=== PATIENT | male | born 1950 | race Two or more races ===

== ENCOUNTER 2023-03-24 09:45 | Inpatient (IN) | payer OTHER ==
[~2023-03-24] VITALS: Ht 243.8 cm; Wt 74.4 kg
[2023-03-24] MEDS ORDERED: LANTUS (12:34)
[2023-03-24] MEDS ORDERED: ACID REDUCER20 M1 PO (12:35)
[2023-03-29] MEDS ORDERED: OMEPRAZOLE20 MG (10:14)
[2023-03-29] MEDS ORDERED: LISINOPRIL20 MG (10:15)
[2023-03-30 04:57] LABS: HEMATOCRIT 36.5 % (39.0-48.0); HEMOGLOBIN 12.6 g/dL (13-16.00); MEAN CORPUSCULAR HEMOGLOBIN 30.9 pg (27.00-32.0); MEAN CORPUSCULAR HGB CONC 34.4 g/dl (32.0-36.0); PLATELET COUNT 168 K/uL (150-450); RED BLOOD COUNT 4.06 M/uL (4.00-6.00); RED CELL DISTRIBUTION WIDTH 14.7 % (11.5-14.5)
[2023-03-30 05:23] LABS: ALBUMIN 3.1 gm/dL (3.4-5.0); CALCIUM 8.2 mg/dL (8.5-10.1); CREATININE SERUM 1.07 mg/dL (0.70-1.30); GFR 68.13; MAGNESIUM 1.6 mg/dL (1.8-2.4); PHOSPHOROUS 3.6 mg/dL (2.5-4.9); POTASSIUM 4.59 mEq/L (3.5-5.1)
[2023-04-01 07:45] LABS: HEMATOCRIT 43.8 % (39.0-48.0); HEMOGLOBIN 15.1 g/dL (13-16.00); MEAN CELL VOLUME 90.2 fL (80.0-100.00); MEAN CORPUSCULAR HEMOGLOBIN 31.1 pg (27.00-32.0); MEAN CORPUSCULAR HGB CONC 34.4 g/dl (32.0-36.0); PLATELET COUNT 226 K/uL (150-450); RED BLOOD COUNT 4.85 M/uL (4.00-6.00); RED CELL DISTRIBUTION WIDTH 14.5 % (11.5-14.5)
[2023-04-01 08:31] LABS: CALCIUM 9.6 mg/dL (8.5-10.1); CREATININE SERUM 1.09 mg/dL (0.70-1.30); GFR 66.69; MAGNESIUM 2.1 mg/dL (1.8-2.4); PHOSPHOROUS 2.5 mg/dL (2.5-4.9); POTASSIUM 4.21 mEq/L (3.5-5.1)
[2023-04-02 08:28] LABS: HEMATOCRIT 46.3 % (39.0-48.0); HEMOGLOBIN 15.9 g/dL (13-16.00); MEAN CELL VOLUME 89.6 fL (80.0-100.00); MEAN CORPUSCULAR HEMOGLOBIN 30.8 pg (27.00-32.0); MEAN CORPUSCULAR HGB CONC 34.4 g/dl (32.0-36.0); PLATELET COUNT 242 K/uL (150-450); RED BLOOD COUNT 5.17 M/uL (4.00-6.00); RED CELL DISTRIBUTION WIDTH 14.6 % (11.5-14.5)
[2023-04-02 09:01] LABS: CALCIUM 9.4 mg/dL (8.5-10.1); CREATININE SERUM 1.27 mg/dL (0.70-1.30); GFR 55.9; PHOSPHOROUS 3.8 mg/dL (2.5-4.9); POTASSIUM 4.34 mEq/L (3.5-5.1)
[2023-04-02 15:29] LABS: CALCIUM 8.8 mg/dL (8.5-10.1); CHOL HDL RATIO 4.3 (0-5.0); CREATININE SERUM 1.45 mg/dL (0.70-1.30); GFR 47.97; POTASSIUM 4.75 mEq/L (3.5-5.1)
[2023-04-03 07:52] LABS: HEMATOCRIT 41.1 % (39.0-48.0); HEMOGLOBIN 14.3 g/dL (13-16.00); MEAN CELL VOLUME 89.5 fL (80.0-100.00); MEAN CORPUSCULAR HEMOGLOBIN 31.1 pg (27.00-32.0); MEAN CORPUSCULAR HGB CONC 34.7 g/dl (32.0-36.0); PLATELET COUNT 222 K/uL (150-450); RED CELL DISTRIBUTION WIDTH 14.5 % (11.5-14.5)
[2023-04-03 08:01] LABS: CALCIUM 8.9 mg/dL (8.5-10.1); CREATININE SERUM 1.13 mg/dL (0.70-1.30); GFR 63.97; MAGNESIUM 2.1 mg/dL (1.8-2.4); PHOSPHOROUS 2.9 mg/dL (2.5-4.9); POTASSIUM 4.94 mEq/L (3.5-5.1)
[2023-04-05 08:03] LABS: ALBUMIN 2.2 gm/dL (3.4-5.0); CALCIUM 8.2 mg/dL (8.5-10.1); CREATININE SERUM 2.88 mg/dL (0.70-1.30); GFR 21.73; MAGNESIUM 1.9 mg/dL (1.8-2.4); PHOSPHOROUS 4.5 mg/dL (2.5-4.9); POTASSIUM 4.56 mEq/L (3.5-5.1)
[2023-04-05 17:30] LABS: HEMOGLOBIN 12.9 g/dL (13-16.00); MEAN CELL VOLUME 90.6 fL (80.0-100.00); MEAN CORPUSCULAR HEMOGLOBIN 30.8 pg (27.00-32.0); PLATELET COUNT 153 K/uL (150-450); RED CELL DISTRIBUTION WIDTH 14.6 % (11.5-14.5)
[2023-04-05 21:00] LABS: ABG PH 7.475 (7.35-7.45); ABG PO2 62.4 mmHg (80-100); ABG pCO2 22.8 mmHg (35-45); BASE EXCESS -4.9 mmol/l; BICARBONATE 16.4 mmol/l (23-25); SaO2 92.9 %; Tco2 17.1 mmol/l
[2023-04-05 21:01] LABS: allen test SATISFACTORY; o2 21 %; puncture site BRADIAL RIGHT
[2023-04-06] LABS: ABG PH 7.242 (7.35-7.45); ABG PO2 119.8 mmHg (80-100); BASE EXCESS -8.2 mmol/l; SaO2 97.6 %
[2023-04-06 00:01] LABS: Tco2 20.3 mmol/l; allen test SATISFACTORY; o2 50 %; puncture site BRADIAL RIGHT
[2023-04-06 07:45] LABS: HEMATOCRIT 37.1 % (39.0-48.0); HEMOGLOBIN 12.5 g/dL (13-16.00); MEAN CELL VOLUME 89.6 fL (80.0-100.00); MEAN CORPUSCULAR HEMOGLOBIN 30.3 pg (27.00-32.0); MEAN CORPUSCULAR HGB CONC 33.8 g/dl (32.0-36.0); PLATELET COUNT 155 K/uL (150-450); RED BLOOD COUNT 4.14 M/uL (4.00-6.00)
[2023-04-06 07:54] LABS: ALBUMIN 1.4 gm/dL (3.4-5.0); BILIRUBIN TOTAL 2.62 mg/dL (0.3-1.2); GLOBULINA 2.4 G/DL (2.4-3.5); MAGNESIUM 1.7 mg/dL (1.8-2.4); PHOSPHOROUS 4.6 mg/dL (2.5-4.9); POTASSIUM 5.67 mEq/L (3.5-5.1); TOTAL PROTEIN 3.8 gm/dL (6.4-8.2)
[2023-04-06 08:02] LABS: GFR 10.66
[2023-04-06 08:03] LABS: CALCIUM 6.1 mg/dL (8.5-10.1); CREATININE SERUM 5.34 mg/dL (0.70-1.30)
[2023-04-06 09:42] LABS: ABG PH 7.317 (7.35-7.45)
[2023-04-06 09:43] LABS: ABG PO2 121.3 mmHg (80-100); ABG pCO2 37.9 mmHg (35-45); BASE EXCESS -6.5 mmol/l; SaO2 98.2 %; Tco2 20.1 mmol/l; allen test SATISFACTORY; o2 40 %; puncture site RADIAL RIGHT
[2023-04-06 16:06] LABS: URINE APPEARANCE Turbid; URINE BILIRRUBIN Moderate (NEGATIVE); URINE BLOOD Large; URINE COLOR Dark Yellow; URINE LEUKOCYTE Small; URINE NITRATE Positive; URINE UROBILINOGEN 0.2 E.U./dl
[2023-04-06 16:10] LABS: URINE BACTERIA 447.2 uL (0.0-1933); URINE RBC 600.3 uL (0.0-20.8); URINE WBC 37.2 uL (0.0-23.2)
[2023-04-06 16:51] LABS: CHOL HDL RATIO 8.8 (0-5.0); POTASSIUM 5.25 mEq/L (3.5-5.1)
[2023-04-06 16:59] LABS: URINE GLUCOSE 100 MG/DL (NEGATIVE)
[2023-04-06 17:00] LABS: URINE EPITHELIAL CELLS > 201.7 uL (0.0-38.8); URINE PROTEIN 100 (NEGATIVE); URINE YEAST MODERATE /hpf
[2023-04-06 17:06] LABS: GFR 10.3
[2023-04-06 17:09] LABS: CALCIUM 6.3 mg/dL (8.5-10.1); CKMB 3.8 NG/ML (0.5-3.6); CREATININE SERUM 5.5 mg/dL (0.70-1.30)
[2023-04-07 08:46] LABS: ABG PO2 150.5 mmHg (80-100); ABG pCO2 34.2 mmHg (35-45); BASE EXCESS -8.4 mmol/l; BICARBONATE 16.8 mmol/l (23-25); Tco2 17.9 mmol/l; allen test SATISFACTORY; o2 40 %; puncture site RADIAL RIGHT
[2023-04-07 09:32] LABS: HEMATOCRIT 29.5 % (39.0-48.0); MEAN CELL VOLUME 91.7 fL (80.0-100.00); MEAN CORPUSCULAR HGB CONC 33.4 g/dl (32.0-36.0); RED BLOOD COUNT 3.22 M/uL (4.00-6.00); RED CELL DISTRIBUTION WIDTH 15.1 % (11.5-14.5)
[2023-04-07 09:36] LABS: MEAN CORPUSCULAR HEMOGLOBIN 30.7 pg (27.00-32.0)
[2023-04-07 09:38] LABS: HEMOGLOBIN 9.9 g/dL (13-16.00); PLATELET COUNT 91 K/uL (150-450)
[2023-04-07 10:47] LABS: ALBUMIN 1.1 gm/dL (3.4-5.0); BILIRUBIN TOTAL 2.11 mg/dL (0.3-1.2); GLOBULINA 2.8 G/DL (2.4-3.5); MAGNESIUM 2.1 mg/dL (1.8-2.4); PHOSPHOROUS 5.7 mg/dL (2.5-4.9); POTASSIUM 5.11 mEq/L (3.5-5.1); TOTAL PROTEIN 3.9 gm/dL (6.4-8.2)
[2023-04-07 10:56] LABS: GFR 8.33
[2023-04-07 10:59] LABS: CALCIUM 5.7 mg/dL (8.5-10.1); CREATININE SERUM 6.61 mg/dL (0.70-1.30)
[2023-04-08 09:12] LABS: ABG PH 7.367 (7.35-7.45); ABG PO2 170.3 mmHg (80-100); ABG pCO2 35.2 mmHg (35-45); BASE EXCESS -4.8 mmol/l; BICARBONATE 19.8 mmol/l (23-25); SaO2 99.4 %; Tco2 20.8 mmol/l
[2023-04-08 09:13] LABS: allen test SATISFACTORY; o2 40 %; puncture site RADIAL RIGHT
[2023-04-08 09:38] LABS: HEMATOCRIT 27.7 % (39.0-48.0); MEAN CELL VOLUME 89.5 fL (80.0-100.00); MEAN CORPUSCULAR HGB CONC 34.1 g/dl (32.0-36.0); RED BLOOD COUNT 3.09 M/uL (4.00-6.00); RED CELL DISTRIBUTION WIDTH 15.4 % (11.5-14.5)
[2023-04-08 09:50] LABS: ALBUMIN 1.1 gm/dL (3.4-5.0); BILIRUBIN TOTAL 2.24 mg/dL (0.3-1.2); CALCIUM 6.7 mg/dL (8.5-10.1); GFR 10.13; GLOBULINA 2.8 G/DL (2.4-3.5); POTASSIUM 4.73 mEq/L (3.5-5.1); TOTAL PROTEIN 3.9 gm/dL (6.4-8.2)
[2023-04-08 09:53] LABS: CREATININE SERUM 5.58 mg/dL (0.70-1.30)
[2023-04-08 10:47] LABS: HEMOGLOBIN 9.4 g/dL (13-16.00); MEAN CORPUSCULAR HEMOGLOBIN 30.4 pg (27.00-32.0)
[2023-04-08 10:48] LABS: PLATELET COUNT 91 K/uL (150-450)
[2023-04-08 13:58] LABS: MANUAL PLATELET COUNT 86
[2023-04-09 08:40] LABS: ABG PO2 174.1 mmHg (80-100); ABG pCO2 37.9 mmHg (35-45); BICARBONATE 17.8 mmol/l (23-25); SaO2 99.3 %; allen test SATISFACTORY; o2 35 %; puncture site RADIAL RIGHT
[2023-04-09 09:41] LABS: HEMATOCRIT 27.9 % (39.0-48.0); HEMOGLOBIN 9.5 g/dL (13-16.00); MEAN CELL VOLUME 89.9 fL (80.0-100.00); MEAN CORPUSCULAR HEMOGLOBIN 30.5 pg (27.00-32.0); MEAN CORPUSCULAR HGB CONC 33.9 g/dl (32.0-36.0); RED BLOOD COUNT 3.11 M/uL (4.00-6.00); RED CELL DISTRIBUTION WIDTH 15.5 % (11.5-14.5)
[2023-04-09 09:49] LABS: PLATELET COUNT 92 K/uL (150-450)
[2023-04-09 10:16] LABS: ALBUMIN 1.1 gm/dL (3.4-5.0); BILIRUBIN TOTAL 2.91 mg/dL (0.3-1.2); CALCIUM 6.7 mg/dL (8.5-10.1); GFR 7.54; MAGNESIUM 2.4 mg/dL (1.8-2.4); PHOSPHOROUS 6.4 mg/dL (2.5-4.9); POTASSIUM 5.15 mEq/L (3.5-5.1); TOTAL PROTEIN 4.1 gm/dL (6.4-8.2)
[2023-04-09 11:52] LABS: CREATININE SERUM 7.21 mg/dL (0.70-1.30)
[2023-04-10 07:13] LABS: HEMATOCRIT 29.3 % (39.0-48.0); HEMOGLOBIN 9.8 g/dL (13-16.00); MEAN CELL VOLUME 91.5 fL (80.0-100.00); MEAN CORPUSCULAR HEMOGLOBIN 30.5 pg (27.00-32.0); MEAN CORPUSCULAR HGB CONC 33.3 g/dl (32.0-36.0); RED CELL DISTRIBUTION WIDTH 15.2 % (11.5-14.5)
[2023-04-10 07:24] LABS: ALBUMIN 1.2 gm/dL (3.4-5.0); BILIRUBIN TOTAL 2.91 mg/dL (0.3-1.2); BILIRUBIN,CONJUGATED 2.47 mg/dL (0.0-0.2); BILIRUBIN,UNCONJUGATED 0.44 mg/dL (0.0-0.6); MAGNESIUM 2.6 mg/dL (1.8-2.4); TOTAL PROTEIN 4.2 gm/dL (6.4-8.2)
[2023-04-10 07:30] LABS: ALBUMIN 1.1 gm/dL (3.4-5.0); BILIRUBIN TOTAL 2.94 mg/dL (0.3-1.2); CALCIUM 6.8 mg/dL (8.5-10.1); GLOBULINA 3.1 G/DL (2.4-3.5); TOTAL PROTEIN 4.2 gm/dL (6.4-8.2)
[2023-04-10 07:36] LABS: PLATELET COUNT 100 K/uL (150-450)
[2023-04-10 07:59] LABS: INR 1.36; PARTIAL THROMBOPLASTIN TIME 36.2 SECONDS (22.0-34.0)
[2023-04-10 08:24] LABS: GFR 6.34; POTASSIUM 5.92 mEq/L (3.5-5.1)
[2023-04-10 08:26] LABS: CREATININE SERUM 8.37 mg/dL (0.70-1.30)
[2023-04-10 09:26] LABS: ABG PH 7.207 (7.35-7.45); ABG PO2 191.4 mmHg (80-100); ABG pCO2 39.8 mmHg (35-45); BASE EXCESS -11.9 mmol/l; BICARBONATE 15.4 mmol/l (23-25); SaO2 99.3 %; Tco2 16.6 mmol/l; allen test SATISFACTORY; o2 35 %; puncture site RADIAL RIGHT
[2023-04-10 13:27] LABS: UREA CLEARANCE 0.3 ML/MIN
[2023-04-11 07:52] LABS: PH,URINE 5.5 (5.0-8.0); URINE APPEARANCE Cloudy; URINE BILIRRUBIN Small (NEGATIVE); URINE BLOOD Large; URINE COLOR Dark Yellow; URINE GLUCOSE Negative (NEGATIVE); URINE LEUKOCYTE Moderate; URINE NITRATE Negative; URINE UROBILINOGEN 0.2 E.U./dl
[2023-04-11 07:55] LABS: URINE BACTERIA 442.2 uL (0.0-1933); URINE EPITHELIAL CELLS 13.9 uL (0.0-38.8); URINE RBC 263.4 uL (0.0-20.8); URINE WBC 671.9 uL (0.0-23.2)
[2023-04-11 08:05] LABS: HEMATOCRIT 29.5 % (39.0-48.0); MEAN CORPUSCULAR HEMOGLOBIN 30.2 pg (27.00-32.0); MEAN CORPUSCULAR HGB CONC 33.9 g/dl (32.0-36.0); RED BLOOD COUNT 3.32 M/uL (4.00-6.00); RED CELL DISTRIBUTION WIDTH 15.7 % (11.5-14.5)
[2023-04-11 08:06] LABS: PLATELET COUNT 103 K/uL (150-450)
[2023-04-11 08:23] LABS: URINE PROTEIN 100 (NEGATIVE); URINE YEAST MANY /hpf
[2023-04-11 08:24] LABS: ALBUMIN 1.2 gm/dL (3.4-5.0); BILIRUBIN TOTAL 2.88 mg/dL (0.3-1.2); CALCIUM 6.8 mg/dL (8.5-10.1); GLOBULINA 3.2 G/DL (2.4-3.5); MAGNESIUM 2.3 mg/dL (1.8-2.4); PHOSPHOROUS 7.9 mg/dL (2.5-4.9); POTASSIUM 5.56 mEq/L (3.5-5.1); TOTAL PROTEIN 4.4 gm/dL (6.4-8.2)
[2023-04-11 08:32] LABS: GFR 8.55
[2023-04-11 08:33] LABS: CREATININE SERUM 6.46 mg/dL (0.70-1.30)
[2023-04-11 09:52] LABS: INR 1.5; PARTIAL THROMBOPLASTIN TIME 36.3 SECONDS (22.0-34.0)
[2023-04-11 10:24] LABS: PROTHROMBIN TIME 15.3 SECONDS (9.0-11.5)
[2023-04-11 15:17] LABS: ABG PH 7.332 (7.35-7.45); ABG PO2 191.8 mmHg (80-100); ABG pCO2 33.6 mmHg (35-45); BASE EXCESS -7.4 mmol/l; BICARBONATE 17.4 mmol/l (23-25); SaO2 99.5 %; Tco2 18.4 mmol/l
[2023-04-11 15:19] LABS: allen test SATISFACTORY; o2 35 %; puncture site RADIAL RIGHT
[2023-04-12 12:05] LABS: CALCIUM 7.1 mg/dL (8.5-10.1); CREATININE SERUM 3.61 mg/dL (0.70-1.30); GFR 16.74; MAGNESIUM 2.1 mg/dL (1.8-2.4); PHOSPHOROUS 6.5 mg/dL (2.5-4.9); POTASSIUM 4.66 mEq/L (3.5-5.1)
[2023-04-12 13:28] LABS: HEMATOCRIT 29.7 % (39.0-48.0); HEMOGLOBIN 10.1 g/dL (13-16.00); MEAN CELL VOLUME 90.3 fL (80.0-100.00); MEAN CORPUSCULAR HEMOGLOBIN 30.6 pg (27.00-32.0); MEAN CORPUSCULAR HGB CONC 33.9 g/dl (32.0-36.0); RED CELL DISTRIBUTION WIDTH 15.4 % (11.5-14.5)
[2023-04-12 13:31] LABS: PLATELET COUNT 110 K/uL (150-450)
[2023-04-12 20:00] LABS: ABG PH 7.406 (7.35-7.45); ABG PO2 171.3 mmHg (80-100); ABG pCO2 35.5 mmHg (35-45); BASE EXCESS -2.2 mmol/l; BICARBONATE 21.8 mmol/l (23-25); SaO2 99.5 %; Tco2 22.9 mmol/l
[2023-04-12 20:01] LABS: allen test SATISFACTORY; o2 35 %; puncture site RADIAL RIGHT
[2023-04-13 06:07] LABS: HEMATOCRIT 28.3 % (39.0-48.0); HEMOGLOBIN 9.6 g/dL (13-16.00); MEAN CELL VOLUME 89.9 fL (80.0-100.00); MEAN CORPUSCULAR HEMOGLOBIN 30.7 pg (27.00-32.0); MEAN CORPUSCULAR HGB CONC 34.1 g/dl (32.0-36.0); RED BLOOD COUNT 3.15 M/uL (4.00-6.00); RED CELL DISTRIBUTION WIDTH 15.2 % (11.5-14.5)
[2023-04-13 06:09] LABS: PLATELET COUNT 109 K/uL (150-450)
[2023-04-13 06:50] LABS: GFR 11.14; POTASSIUM 5.44 mEq/L (3.5-5.1)
[2023-04-13 07:13] LABS: CREATININE SERUM 5.14 mg/dL (0.70-1.30)
[2023-04-13 09:26] LABS: ABG PH 7.339 (7.35-7.45); ABG PO2 180.4 mmHg (80-100); ABG pCO2 37.8 mmHg (35-45); BASE EXCESS -5.3 mmol/l; BICARBONATE 19.9 mmol/l (23-25); SaO2 99.5 %; allen test SATISFACTORY; o2 35 %; puncture site RADIAL RIGHT
[2023-04-14 09:04] LABS: ABG PH 7.392 (7.35-7.45); ABG PO2 150.8 mmHg (80-100); BASE EXCESS -6.2 mmol/l; BICARBONATE 17.2 mmol/l (23-25); SaO2 99.2 %; Tco2 18.1 mmol/l; allen test SATISFACTORY; o2 35 %; puncture site RADIAL RIGHT
[2023-04-15 08:14] LABS: HEMATOCRIT 27.7 % (39.0-48.0); MEAN CORPUSCULAR HEMOGLOBIN 30.5 pg (27.00-32.0); MEAN CORPUSCULAR HGB CONC 33.5 g/dl (32.0-36.0); RED BLOOD COUNT 3.04 M/uL (4.00-6.00); RED CELL DISTRIBUTION WIDTH 14.9 % (11.5-14.5)
[2023-04-15 08:18] LABS: HEMOGLOBIN 9.3 g/dL (13-16.00); PLATELET COUNT 112 K/uL (150-450)
[2023-04-15 08:28] LABS: ALBUMIN 1.3 gm/dL (3.4-5.0); BILIRUBIN TOTAL 1.5 mg/dL (0.3-1.2); CALCIUM 6.9 mg/dL (8.5-10.1); GLOBULINA 3.2 G/DL (2.4-3.5); MAGNESIUM 2.5 mg/dL (1.8-2.4); POTASSIUM 5.31 mEq/L (3.5-5.1); TOTAL PROTEIN 4.5 gm/dL (6.4-8.2)
[2023-04-15 08:56] LABS: C-REACTIVE PROTEIN 11.6 MG/DL (0.00-0.29); CREATININE SERUM 4.7 mg/dL (0.70-1.30); GFR 12.35
[2023-04-15 11:23] LABS: ABG PH 7.366 (7.35-7.45)
[2023-04-15 11:24] LABS: ABG PO2 89.9 mmHg (80-100); ABG pCO2 34.9 mmHg (35-45); BICARBONATE 19.5 mmol/l (23-25); SaO2 96.4 %; Tco2 20.6 mmol/l
[2023-04-15 11:25] LABS: allen test SATISFACTORY; o2 35 %; puncture site RADIAL RIGHT
[2023-04-16 11:06] LABS: ABG PH 7.353 (7.35-7.45); ABG PO2 169.1 mmHg (80-100); ABG pCO2 35.9 mmHg (35-45); BASE EXCESS -5.3 mmol/l; BICARBONATE 19.5 mmol/l (23-25); SaO2 99.4 %; Tco2 20.6 mmol/l
[2023-04-16 11:07] LABS: o2 35 %
[2023-04-16 11:08] LABS: allen test SATISFACTORY; puncture site RADIAL RIGHT
[2023-04-17 07:27] LABS: HEMATOCRIT 27.1 % (39.0-48.0); HEMOGLOBIN 9.2 g/dL (13-16.00); MEAN CELL VOLUME 90.4 fL (80.0-100.00); MEAN CORPUSCULAR HEMOGLOBIN 30.7 pg (27.00-32.0); MEAN CORPUSCULAR HGB CONC 33.9 g/dl (32.0-36.0); RED BLOOD COUNT 2.99 M/uL (4.00-6.00); RED CELL DISTRIBUTION WIDTH 14.9 % (11.5-14.5)
[2023-04-17 07:29] LABS: PLATELET COUNT 112 K/uL (150-450)
[2023-04-17 07:43] LABS: INR 1.96
[2023-04-17 07:45] LABS: MAGNESIUM 2.1 mg/dL (1.8-2.4)
[2023-04-17 07:46] LABS: GFR 12.92; POTASSIUM 5.41 mEq/L (3.5-5.1)
[2023-04-17 07:55] LABS: PHOSPHOROUS 9.2 mg/dL (2.5-4.9)
[2023-04-17 07:56] LABS: CREATININE SERUM 4.52 mg/dL (0.70-1.30)
[2023-04-17 07:59] LABS: PARTIAL THROMBOPLASTIN TIME 43.3 SECONDS (22.0-34.0); PROTHROMBIN TIME 19.6 SECONDS (9.0-11.5)
[2023-04-17 08:19] LABS: UREA CLEARANCE 1.9 ML/MIN
[2023-04-17 08:23] LABS: ALBUMIN 1.3 gm/dL (3.4-5.0); BILIRUBIN TOTAL 1.55 mg/dL (0.3-1.2); BILIRUBIN,CONJUGATED 1.19 mg/dL (0.0-0.2); BILIRUBIN,UNCONJUGATED 0.36 mg/dL (0.0-0.6); CHOL HDL RATIO 5.1 (0-5.0); TOTAL PROTEIN 4.3 gm/dL (6.4-8.2)
[2023-04-17 09:50] LABS: ABG PH 7.374 (7.35-7.45); ABG PO2 192.9 mmHg (80-100); BASE EXCESS -5.8 mmol/l; BICARBONATE 18.2 mmol/l (23-25); SaO2 99.6 %; Tco2 19.2 mmol/l
[2023-04-17 09:51] LABS: allen test SATISFACTORY; o2 35 %; puncture site RADIAL RIGHT
[2023-04-17 12:54] LABS: ABG PH 7.387 (7.35-7.45); ABG PO2 193.4 mmHg (80-100); ABG pCO2 30.5 mmHg (35-45); BASE EXCESS -5.7 mmol/l; BICARBONATE 17.9 mmol/l (23-25); SaO2 99.6 %; Tco2 18.9 mmol/l
[2023-04-17 12:55] LABS: o2 35 %
[2023-04-17 12:56] LABS: allen test SATISFACTORY; puncture site RADIAL RIGHT
[2023-04-18 06:47] LABS: CALCIUM 7.2 mg/dL (8.5-10.1); GFR 11.94; POTASSIUM 5.62 mEq/L (3.5-5.1)
[2023-04-18 06:52] LABS: CREATININE SERUM 4.84 mg/dL (0.70-1.30)
[2023-04-18 12:04] LABS: ABG PH 7.336 (7.35-7.45); ABG pCO2 30.2 mmHg (35-45)
[2023-04-18 12:05] LABS: ABG PO2 303.6 mmHg (80-100); BASE EXCESS -8.6 mmol/l; BICARBONATE 15.8 mmol/l (23-25); SaO2 99.9 %; Tco2 16.7 mmol/l
[2023-04-18 12:06] LABS: allen test SATISFACTORY; o2 35 %; puncture site RADIAL RIGHT
[2023-04-18 12:07] LABS: ABG PH 7.412 (7.35-7.45); ABG PO2 86.6 mmHg (80-100); ABG pCO2 22.9 mmHg (35-45); BASE EXCESS -8.1 mmol/l; BICARBONATE 14.3 mmol/l (23-25); SaO2 96.4 %
[2023-04-18 12:09] LABS: allen test SATISFACTORY; o2 35 %; puncture site RADIAL RIGHT
[2023-04-18 12:10] LABS: ABG PO2 104.1 mmHg (80-100); ABG pCO2 28.8 mmHg (35-45); BASE EXCESS -4.7 mmol/l; BICARBONATE 18.3 mmol/l (23-25); Tco2 19.2 mmol/l
[2023-04-18 12:11] LABS: allen test SATISFACTORY; o2 35 %; puncture site RADIAL RIGHT
[2023-04-19 07:09] LABS: ALBUMIN 1.4 gm/dL (3.4-5.0); BILIRUBIN TOTAL 1.82 mg/dL (0.3-1.2); CALCIUM 7.4 mg/dL (8.5-10.1); CREATININE SERUM 3.83 mg/dL (0.70-1.30); GFR 15.64; GLOBULINA 3.3 G/DL (2.4-3.5); POTASSIUM 5.18 mEq/L (3.5-5.1); TOTAL PROTEIN 4.7 gm/dL (6.4-8.2)
[2023-04-20 06:49] LABS: ALBUMIN 1.4 gm/dL (3.4-5.0); BILIRUBIN TOTAL 1.42 mg/dL (0.3-1.2); CALCIUM 7.5 mg/dL (8.5-10.1); GLOBULINA 3.3 G/DL (2.4-3.5); POTASSIUM 5.08 mEq/L (3.5-5.1); TOTAL PROTEIN 4.7 gm/dL (6.4-8.2)
[2023-04-20 06:52] LABS: C-REACTIVE PROTEIN 9.98 MG/DL (0.00-0.29); CREATININE SERUM 3.98 mg/dL (0.70-1.30); GFR 14.96
[2023-04-20 06:54] LABS: MEAN CORPUSCULAR HGB CONC 34.9 g/dl (32.0-36.0); RED BLOOD COUNT 2.63 M/uL (4.00-6.00); RED CELL DISTRIBUTION WIDTH 14.9 % (11.5-14.5)
[2023-04-20 06:59] LABS: HEMATOCRIT 23.1 % (39.0-48.0); HEMOGLOBIN 8.1 g/dL (13-16.00); MEAN CORPUSCULAR HEMOGLOBIN 30.7 pg (27.00-32.0)
[2023-04-20 07:00] LABS: PLATELET COUNT 121 K/uL (150-450)
[2023-04-20 07:06] LABS: ERYTHROCYTE SEDIMENTATION RATE 47 mm/hr
[2023-04-21 10:31] LABS: HEMATOCRIT 27.4 % (39.0-48.0); HEMOGLOBIN 9.5 g/dL (13-16.00); MEAN CELL VOLUME 87.2 fL (80.0-100.00); MEAN CORPUSCULAR HEMOGLOBIN 30.4 pg (27.00-32.0); MEAN CORPUSCULAR HGB CONC 34.8 g/dl (32.0-36.0); RED BLOOD COUNT 3.15 M/uL (4.00-6.00); RED CELL DISTRIBUTION WIDTH 15.2 % (11.5-14.5)
[2023-04-21 10:33] LABS: PLATELET COUNT 105 K/uL (150-450)
[2023-04-21 11:07] LABS: ALBUMIN 1.5 gm/dL (3.4-5.0); BILIRUBIN TOTAL 1.91 mg/dL (0.3-1.2); CALCIUM 7.1 mg/dL (8.5-10.1); CREATININE SERUM 2.76 mg/dL (0.70-1.30); GFR 22.82; GLOBULINA 3.3 G/DL (2.4-3.5); POTASSIUM 4.5 mEq/L (3.5-5.1); TOTAL PROTEIN 4.8 gm/dL (6.4-8.2)
[2023-04-22 13:49] LABS: HEMATOCRIT 29.9 % (39.0-48.0); HEMOGLOBIN 10.3 g/dL (13-16.00); MEAN CELL VOLUME 86.9 fL (80.0-100.00); MEAN CORPUSCULAR HEMOGLOBIN 29.9 pg (27.00-32.0); MEAN CORPUSCULAR HGB CONC 34.4 g/dl (32.0-36.0); PLATELET COUNT 75 K/uL (150-450); RED BLOOD COUNT 3.44 M/uL (4.00-6.00); RED CELL DISTRIBUTION WIDTH 14.7 % (11.5-14.5)
[2023-04-24 08:19] LABS: HEMATOCRIT 29.3 % (39.0-48.0); MEAN CELL VOLUME 88.3 fL (80.0-100.00); MEAN CORPUSCULAR HEMOGLOBIN 30.1 pg (27.00-32.0); MEAN CORPUSCULAR HGB CONC 34.1 g/dl (32.0-36.0); RED BLOOD COUNT 3.32 M/uL (4.00-6.00); RED CELL DISTRIBUTION WIDTH 14.6 % (11.5-14.5)
[2023-04-24 08:20] LABS: PLATELET COUNT 68 K/uL (150-450)
[2023-04-24 08:32] LABS: ALBUMIN 1.4 gm/dL (3.4-5.0); BILIRUBIN TOTAL 2.16 mg/dL (0.3-1.2); BILIRUBIN,CONJUGATED 1.53 mg/dL (0.0-0.2); BILIRUBIN,UNCONJUGATED 0.63 mg/dL (0.0-0.6); CALCIUM 7.2 mg/dL (8.5-10.1); CREATININE SERUM 2.26 mg/dL (0.70-1.30); GFR 28.75; GLOBULINA 3.2 G/DL (2.4-3.5); MAGNESIUM 1.6 mg/dL (1.8-2.4); POTASSIUM 3.89 mEq/L (3.5-5.1); TOTAL PROTEIN 4.6 gm/dL (6.4-8.2)
[2023-04-24 08:36] LABS: C-REACTIVE PROTEIN 16.4 MG/DL (0.00-0.29)
[2023-04-24 08:41] LABS: ERYTHROCYTE SEDIMENTATION RATE 53 mm/hr
[2023-04-24 08:55] LABS: INR 1.65; PARTIAL THROMBOPLASTIN TIME 37.6 SECONDS (22.0-34.0)
[2023-04-24 08:59] LABS: PROTHROMBIN TIME 16.7 SECONDS (9.0-11.5)
[2023-04-24 09:07] LABS: UREA CLEARANCE 14.3 ML/MIN
[2023-04-24 09:48] LABS: ABG PH 7.526 (7.35-7.45); ABG PO2 68.2 mmHg (80-100); ABG pCO2 23.5 mmHg (35-45); BASE EXCESS -1.6 mmol/l; BICARBONATE 19.1 mmol/l (23-25); SaO2 95.4 %; Tco2 19.8 mmol/l; o2 32 %
[2023-04-24 09:49] LABS: allen test SATISFACTORY; puncture site RADIAL LEFT
[2023-04-24 21:07] LABS: ABG PH 7.506 (7.35-7.45); ABG pCO2 23.6 mmHg (35-45)
[2023-04-24 21:08] LABS: ABG PO2 56.8 mmHg (80-100); BASE EXCESS -2.7 mmol/l; BICARBONATE 18.3 mmol/l (23-25); SaO2 91.9 %; allen test SATISFACTORY; o2 36 %; puncture site RADIAL RIGHT
[2023-04-25 07:09] LABS: HEMATOCRIT 26.9 % (39.0-48.0); HEMOGLOBIN 9.2 g/dL (13-16.00); MEAN CELL VOLUME 89.4 fL (80.0-100.00); MEAN CORPUSCULAR HEMOGLOBIN 30.7 pg (27.00-32.0); MEAN CORPUSCULAR HGB CONC 34.4 g/dl (32.0-36.0); RED BLOOD COUNT 3.01 M/uL (4.00-6.00); RED CELL DISTRIBUTION WIDTH 14.6 % (11.5-14.5)
[2023-04-25 07:15] LABS: PLATELET COUNT 68 K/uL (150-450)
[2023-04-25 07:39] LABS: ALBUMIN 1.4 gm/dL (3.4-5.0); BILIRUBIN TOTAL 2.55 mg/dL (0.3-1.2); CALCIUM 7.3 mg/dL (8.5-10.1); CREATININE SERUM 2.55 mg/dL (0.70-1.30); GFR 25.01; GLOBULINA 3.4 G/DL (2.4-3.5); POTASSIUM 3.87 mEq/L (3.5-5.1); TOTAL PROTEIN 4.8 gm/dL (6.4-8.2)
[2023-04-26 07:17] LABS: HEMATOCRIT 25.1 % (39.0-48.0); MEAN CELL VOLUME 89.9 fL (80.0-100.00); MEAN CORPUSCULAR HGB CONC 33.7 g/dl (32.0-36.0); RED CELL DISTRIBUTION WIDTH 14.5 % (11.5-14.5)
[2023-04-26 07:25] LABS: CALCIUM 7.3 mg/dL (8.5-10.1); CREATININE SERUM 2.49 mg/dL (0.70-1.30); GFR 25.7; POTASSIUM 3.29 mEq/L (3.5-5.1)
[2023-04-26 07:31] LABS: HEMOGLOBIN 8.5 g/dL (13-16.00); MEAN CORPUSCULAR HEMOGLOBIN 30.3 pg (27.00-32.0)
[2023-04-26 07:32] LABS: PLATELET COUNT 59 K/uL (150-450)
[2023-04-27 07:00] LABS: PH,URINE 5.5 (5.0-8.0); URINE APPEARANCE Clear; URINE BILIRRUBIN Negative (NEGATIVE); URINE BLOOD Large; URINE COLOR Yellow; URINE GLUCOSE Negative (NEGATIVE); URINE LEUKOCYTE Small; URINE NITRATE Negative; URINE PROTEIN 30 (NEGATIVE); URINE UROBILINOGEN 0.2 E.U./dl
[2023-04-27 07:02] LABS: URINE BACTERIA 45.3 uL (0.0-1933); URINE EPITHELIAL CELLS 15.9 uL (0.0-38.8); URINE RBC 212.5 uL (0.0-20.8); URINE WBC 43.9 uL (0.0-23.2)
[2023-04-27 07:06] LABS: CALCIUM 7.8 mg/dL (8.5-10.1); CREATININE SERUM 2.25 mg/dL (0.70-1.30); GFR 28.89; HEMATOCRIT 25.3 % (39.0-48.0); MAGNESIUM 1.7 mg/dL (1.8-2.4); MEAN CELL VOLUME 88.1 fL (80.0-100.00); MEAN CORPUSCULAR HGB CONC 34.4 g/dl (32.0-36.0); PHOSPHOROUS 3.9 mg/dL (2.5-4.9); POTASSIUM 3.59 mEq/L (3.5-5.1); RED BLOOD COUNT 2.87 M/uL (4.00-6.00)
[2023-04-27 07:16] LABS: MEAN CORPUSCULAR HEMOGLOBIN 30.3 pg (27.00-32.0)
[2023-04-27 07:17] LABS: HEMOGLOBIN 8.7 g/dL (13-16.00); PLATELET COUNT 66 K/uL (150-450)
[2023-04-27 07:52] LABS: URINE EPITHELIAL CELLS 0-4 /HPF
[2023-04-27 10:04] LABS: MANUAL PLATELET COUNT 114; PLATELET ESTIMATE DECREASED (NORMAL)
[2023-04-28 07:29] LABS: FERRITIN 1624.6 NG/ML (26-388)
[2023-04-28 16:24] LABS: HEMATOCRIT 25.3 % (39.0-48.0); MEAN CELL VOLUME 90.3 fL (80.0-100.00); MEAN CORPUSCULAR HGB CONC 33.4 g/dl (32.0-36.0); RED CELL DISTRIBUTION WIDTH 14.8 % (11.5-14.5)
[2023-04-28 16:25] LABS: HEMOGLOBIN 8.5 g/dL (13-16.00); MEAN CORPUSCULAR HEMOGLOBIN 30.3 pg (27.00-32.0); PLATELET COUNT 73 K/uL (150-450)
[2023-04-29 09:42] LABS: HEMATOCRIT 24.4 % (39.0-48.0); MEAN CELL VOLUME 89.2 fL (80.0-100.00); MEAN CORPUSCULAR HEMOGLOBIN 29.9 pg (27.00-32.0); MEAN CORPUSCULAR HGB CONC 33.6 g/dl (32.0-36.0); RED BLOOD COUNT 2.74 M/uL (4.00-6.00); RED CELL DISTRIBUTION WIDTH 14.6 % (11.5-14.5)
[2023-04-29 09:43] LABS: HEMOGLOBIN 8.2 g/dL (13-16.00)
[2023-04-29 09:44] LABS: PLATELET COUNT 113 K/uL (150-450)
[2023-04-29 10:42] LABS: CALCIUM 7.4 mg/dL (8.5-10.1); CREATININE SERUM 1.57 mg/dL (0.70-1.30); GFR 43.77; POTASSIUM 3.33 mEq/L (3.5-5.1)
[2023-04-30 02:51] LABS: MEAN CELL VOLUME 89.3 fL (80.0-100.00); MEAN CORPUSCULAR HEMOGLOBIN 30.6 pg (27.00-32.0); MEAN CORPUSCULAR HGB CONC 34.3 g/dl (32.0-36.0); PLATELET COUNT 149 K/uL (150-450); RED BLOOD COUNT 2.51 M/uL (4.00-6.00); RED CELL DISTRIBUTION WIDTH 14.7 % (11.5-14.5)
[2023-04-30 02:52] LABS: HEMATOCRIT 22.4 % (39.0-48.0); HEMOGLOBIN 7.7 g/dL (13-16.00)
[2023-04-30 07:50] LABS: ALBUMIN 1.6 gm/dL (3.4-5.0); BILIRUBIN TOTAL 0.95 mg/dL (0.3-1.2); CALCIUM 7.6 mg/dL (8.5-10.1); CREATININE SERUM 1.46 mg/dL (0.70-1.30); GFR 47.59; GLOBULINA 3.5 G/DL (2.4-3.5); POTASSIUM 3.29 mEq/L (3.5-5.1); TOTAL PROTEIN 5.1 gm/dL (6.4-8.2)
[2023-04-30 07:57] LABS: MEAN CELL VOLUME 88.1 fL (80.0-100.00); MEAN CORPUSCULAR HGB CONC 34.1 g/dl (32.0-36.0); RED BLOOD COUNT 2.62 M/uL (4.00-6.00); RED CELL DISTRIBUTION WIDTH 14.7 % (11.5-14.5)
[2023-04-30 08:10] LABS: INR 1.28; PROTHROMBIN TIME 13.2 SECONDS (9.0-11.5)
[2023-04-30 08:53] LABS: MEAN CORPUSCULAR HEMOGLOBIN 30.1 pg (27.00-32.0)
[2023-04-30 08:56] LABS: HEMATOCRIT 23.1 % (39.0-48.0); HEMOGLOBIN 7.9 g/dL (13-16.00); PLATELET COUNT 106 K/uL (150-450)
[2023-05-01 08:37] LABS: HEMATOCRIT 32.3 % (39.0-48.0); MEAN CELL VOLUME 89.5 fL (80.0-100.00); MEAN CORPUSCULAR HEMOGLOBIN 30.6 pg (27.00-32.0); MEAN CORPUSCULAR HGB CONC 34.2 g/dl (32.0-36.0); PLATELET COUNT 145 K/uL (150-450); RED CELL DISTRIBUTION WIDTH 14.6 % (11.5-14.5)
[2023-05-03 07:01] LABS: HEMATOCRIT 32.2 % (39.0-48.0); HEMOGLOBIN 11.1 g/dL (13-16.00); MEAN CORPUSCULAR HEMOGLOBIN 30.9 pg (27.00-32.0); MEAN CORPUSCULAR HGB CONC 34.4 g/dl (32.0-36.0); RED BLOOD COUNT 3.58 M/uL (4.00-6.00); RED CELL DISTRIBUTION WIDTH 14.9 % (11.5-14.5)
[2023-05-03 07:12] LABS: PLATELET COUNT 129 K/uL (150-450)
[2023-05-03 07:26] LABS: ALBUMIN 1.8 gm/dL (3.4-5.0); CALCIUM 7.8 mg/dL (8.5-10.1); CREATININE SERUM 1.29 mg/dL (0.70-1.30); GFR 54.9
[2023-05-03 07:47] LABS: POTASSIUM 2.9 mEq/L (3.5-5.1)
[2023-05-04 07:13] LABS: ALBUMIN 1.9 gm/dL (3.4-5.0); CALCIUM 8.2 mg/dL (8.5-10.1); CREATININE SERUM 1.27 mg/dL (0.70-1.30); GFR 55.9; MAGNESIUM 1.8 mg/dL (1.8-2.4); PHOSPHOROUS 2.6 mg/dL (2.5-4.9); POTASSIUM 3.87 mEq/L (3.5-5.1)
[2023-05-06 08:16] LABS: HEMATOCRIT 35.1 % (39.0-48.0); HEMOGLOBIN 11.7 g/dL (13-16.00); MEAN CELL VOLUME 89.6 fL (80.0-100.00); MEAN CORPUSCULAR HEMOGLOBIN 29.9 pg (27.00-32.0); MEAN CORPUSCULAR HGB CONC 33.4 g/dl (32.0-36.0); RED BLOOD COUNT 3.91 M/uL (4.00-6.00); RED CELL DISTRIBUTION WIDTH 15.3 % (11.5-14.5)
[2023-05-06 08:24] LABS: PLATELET COUNT 124 K/uL (150-450)
[2023-05-06 08:42] LABS: BILIRUBIN TOTAL 0.74 mg/dL (0.3-1.2); CALCIUM 8.4 mg/dL (8.5-10.1); CREATININE SERUM 1.09 mg/dL (0.70-1.30); GFR 66.69; GLOBULINA 3.8 G/DL (2.4-3.5); MAGNESIUM 1.5 mg/dL (1.8-2.4); PHOSPHOROUS 2.5 mg/dL (2.5-4.9); POTASSIUM 4.26 mEq/L (3.5-5.1); TOTAL PROTEIN 5.8 gm/dL (6.4-8.2)
[2023-05-08 07:14] LABS: HEMATOCRIT 37.7 % (39.0-48.0); HEMOGLOBIN 12.7 g/dL (13-16.00); MEAN CELL VOLUME 89.7 fL (80.0-100.00); MEAN CORPUSCULAR HEMOGLOBIN 30.2 pg (27.00-32.0); MEAN CORPUSCULAR HGB CONC 33.7 g/dl (32.0-36.0); PLATELET COUNT 145 K/uL (150-450); RED CELL DISTRIBUTION WIDTH 14.9 % (11.5-14.5)
[2023-05-08 07:54] LABS: ALBUMIN 2.2 gm/dL (3.4-5.0); BILIRUBIN TOTAL 0.85 mg/dL (0.3-1.2); CALCIUM 8.9 mg/dL (8.5-10.1); CREATININE SERUM 1.07 mg/dL (0.70-1.30); GFR 68.13; GLOBULINA 4.3 G/DL (2.4-3.5); MAGNESIUM 1.6 mg/dL (1.8-2.4); PHOSPHOROUS 3.2 mg/dL (2.5-4.9); POTASSIUM 5.1 mEq/L (3.5-5.1); TOTAL PROTEIN 6.5 gm/dL (6.4-8.2)
[2023-05-08 08:24] LABS: C-REACTIVE PROTEIN 1.97 MG/DL (0.00-0.29)
[2023-05-08 08:32] LABS: MANUAL PLATELET COUNT 190
[2023-05-09 10:31] LABS: ABG PH 7.498 (7.35-7.45); ABG PO2 105.8 mmHg (80-100); ABG pCO2 24.4 mmHg (35-45); BASE EXCESS -2.7 mmol/l; BICARBONATE 18.5 mmol/l (23-25); SaO2 98.5 %; Tco2 19.3 mmol/l
[2023-05-09 10:32] LABS: allen test SATISFACTORY; o2 21 %; puncture site RADIAL RIGHT
== END 2023-05-10 07:04 | DRG 329 ==
LOC: O/R 03-29 07:24 → SURH 03-29 07:24 → SURG 03-29 07:24 → SURH 03-29 09:45 → SURG 03-29 15:42 → SURH 03-31 15:15 → ICU 04-05 18:51 → SURH 04-28 14:24
PROVIDERS: Internal Medicine; Internal Medicine Critical Care Medicine; Internal Medicine Geriatric Medicine; Internal Medicine Hematology & Oncology; Internal Medicine Infectious Disease; Internal Medicine Nephrology; Internal Medicine Pulmonary Disease; Surgery; ADMIT Surgery; ATTEND Surgery
PROC: 0DBP4ZZ Excision of Rectum, Percutaneous Endoscopic Approach (ICD-10-PCS; 2023-03-29)
PROC: 0D1B4Z4 Bypass Ileum to Cutaneous, Percutaneous Endoscopic Approach (ICD-10-PCS; 2023-03-29)
PROC: 0DJD8ZZ Inspection of Lower Intestinal Tract, Via Natural or Artificial Opening Endoscopic (ICD-10-PCS; 2023-03-29)
PROC: 0DTN4ZZ Resection of Sigmoid Colon, Percutaneous Endoscopic Approach (ICD-10-PCS; principal; 2023-03-29 15:00)
PROC: 0D9680Z Drainage of Stomach with Drainage Device, Via Natural or Artificial Opening Endoscopic (ICD-10-PCS; 2023-04-02)
PROC: 0DT84ZZ Resection of Small Intestine, Percutaneous Endoscopic Approach (ICD-10-PCS; 2023-04-04)
PROC: 0D1B4Z4 Bypass Ileum to Cutaneous, Percutaneous Endoscopic Approach (ICD-10-PCS; 2023-04-04)
PROC: 0DQ84ZZ Repair Small Intestine, Percutaneous Endoscopic Approach (ICD-10-PCS; 2023-04-04)
PROC: 0BH18EZ Insertion of Endotracheal Airway into Trachea, Via Natural or Artificial Opening Endoscopic (ICD-10-PCS; 2023-04-05)
PROC: 5A1955Z Respiratory Ventilation, Greater than 96 Consecutive Hours (ICD-10-PCS; 2023-04-05)
PROC: 02HV33Z Insertion of Infusion Device into Superior Vena Cava, Percutaneous Approach (ICD-10-PCS; 2023-04-05)
PROC: 5A0935A Assistance with Respiratory Ventilation, Less than 24 Consecutive Hours, High Flow/Velocity Cannula (ICD-10-PCS; 2023-04-05)
PROC: 5A0935A Assistance with Respiratory Ventilation, Less than 24 Consecutive Hours, High Flow/Velocity Cannula (ICD-10-PCS; 2023-04-05)
PROC: 4A12X4Z Monitoring of Cardiac Electrical Activity, External Approach (ICD-10-PCS; 2023-04-05)
PROC: 06HN33Z Insertion of Infusion Device into Left Femoral Vein, Percutaneous Approach (ICD-10-PCS; 2023-04-07)
PROC: B246ZZZ Ultrasonography of Right and Left Heart (ICD-10-PCS; 2023-04-07)
PROC: BW28ZZZ Computerized Tomography (CT Scan) of Head (ICD-10-PCS; 2023-04-13)
PROC: 3E0F7GC Introduction of Other Therapeutic Substance into Respiratory Tract, Via Natural or Artificial Opening (ICD-10-PCS; 2023-04-17)
PROC: BW21ZZZ Computerized Tomography (CT Scan) of Abdomen and Pelvis (ICD-10-PCS; 2023-04-19)
PROC: 30233N1 Transfusion of Nonautologous Red Blood Cells into Peripheral Vein, Percutaneous Approach (ICD-10-PCS; 2023-04-20)
PROC: B54DZZZ Ultrasonography of Bilateral Lower Extremity Veins (ICD-10-PCS; 2023-04-25)
PROC: 30233R1 Transfusion of Nonautologous Platelets into Peripheral Vein, Percutaneous Approach (ICD-10-PCS; 2023-04-29)
DX: C20 Malignant neoplasm of rectum (principal); A41.9 Sepsis, unspecified organism; J95.821 Acute postprocedural respiratory failure; T81.12XA Postprocedural septic shock, initial encounter; K56.699 Other intestinal obstruction unspecified as to partial versus complete obstruction; K62.5 Hemorrhage of anus and rectum; N17.8 Other acute kidney failure; D62 Acute posthemorrhagic anemia; I10 Essential (primary) hypertension; Z93.2 Ileostomy status; I95.9 Hypotension, unspecified; D69.6 Thrombocytopenia, unspecified

== ENCOUNTER 2023-05-23 01:15 | Inpatient (IN) | payer OTHER ==
[~2023-05-23] VITALS: Ht 170.2 cm; Wt 62.6 kg
[~2023-05-23 01:15] MED LIST: ACID REDUCER20 M1 PO; LANTUS; LISINOPRIL20 MG; OMEPRAZOLE20 MG
[2023-05-23] MEDS ORDERED: METOCLOPRAMIDE HCL 5 MG/ML VIAL IM STA (02:15)
[2023-05-23] MEDS ORDERED: RINGERS SOLUTION,LACTATED 1,000 ML IV STA (02:16)
[2023-05-23] MEDS ORDERED: ONDANSETRON HCL 2 MG/ML VIAL IV STA (02:16)
[2023-05-23] MEDS ORDERED: FAMOTIDINE/PF 20 MG/2 ML VIAL IV PUSH STA (02:17)
[2023-05-23 02:57] LABS: PH,URINE 5.5 (5.0-8.0); URINE APPEARANCE Turbid; URINE BILIRRUBIN Negative (NEGATIVE); URINE BLOOD Moderate; URINE COLOR Yellow; URINE GLUCOSE Negative (NEGATIVE); URINE LEUKOCYTE Large; URINE NITRATE Negative; URINE UROBILINOGEN 0.2 E.U./dl
[2023-05-23 03:00] LABS: HEMATOCRIT 40.6 % (39.0-48.0); HEMOGLOBIN 14.2 g/dL (13-16.00); MEAN CELL VOLUME 89.7 fL (80.0-100.00); MEAN CORPUSCULAR HEMOGLOBIN 31.3 pg (27.00-32.0); MEAN CORPUSCULAR HGB CONC 34.9 g/dl (32.0-36.0); PLATELET COUNT 283 K/uL (150-450); RED BLOOD COUNT 4.52 M/uL (4.00-6.00); RED CELL DISTRIBUTION WIDTH 15.7 % (11.5-14.5)
[2023-05-23 03:01] LABS: URINE EPITHELIAL CELLS 14.8 uL (0.0-38.8); URINE RBC 42.2 uL (0.0-20.8)
[2023-05-23 03:12] LABS: ALBUMIN 2.9 gm/dL (3.4-5.0); BILIRUBIN TOTAL 0.72 mg/dL (0.3-1.2); CALCIUM 10.8 mg/dL (8.5-10.1); CREATININE SERUM 1.95 mg/dL (0.70-1.30); GFR 34.08; GLOBULINA 5.7 G/DL (2.4-3.5); POTASSIUM 4.46 mEq/L (3.5-5.1); TOTAL PROTEIN 8.6 gm/dL (6.4-8.2)
[2023-05-23 03:16] LABS: INR 1.11; PROTHROMBIN TIME 11.6 SECONDS (9.0-11.5)
[2023-05-23 03:19] LABS: PARTIAL THROMBOPLASTIN TIME < 20.0 SECONDS (22.0-34.0)
[2023-05-23 04:01] LABS: URINE BACTERIA > 9821.5 uL (0.0-1933); URINE PROTEIN 100 (NEGATIVE); URINE WBC > 5548.3 uL (0.0-23.2)
[2023-05-23] MEDS ORDERED: CIPROFLOXACIN IN 5 % DEXTROSE 400 MG/200 ML PIGGYBAG IV STA (04:17)
[2023-05-23] MEDS ORDERED: RINGERS SOLUTION,LACTATED 1,000 ML IV SCH (08:30)
[2023-05-23] MEDS ORDERED: FAMOTIDINE/PF 20 MG/2 ML VIAL IV SCH (09:00)
[2023-05-23] MEDS ORDERED: CIPROFLOXACIN IN 5 % DEXTROSE 400 MG/200 ML PIGGYBAG IV SCH (09:00)
[2023-05-23] MEDS ORDERED: PANTOPRAZOLE SODIUM 40 MG/VIAL VIAL IV SCH (09:00)
[2023-05-23] MEDS ORDERED: MEROPENEM 500 MG/VIAL VIAL IV SCH (17:00)
[2023-05-24 07:25] LABS: HEMATOCRIT 37.8 % (39.0-48.0); HEMOGLOBIN 12.8 g/dL (13-16.00); MEAN CELL VOLUME 90.9 fL (80.0-100.00); MEAN CORPUSCULAR HEMOGLOBIN 30.7 pg (27.00-32.0); MEAN CORPUSCULAR HGB CONC 33.8 g/dl (32.0-36.0); PLATELET COUNT 251 K/uL (150-450); RED BLOOD COUNT 4.16 M/uL (4.00-6.00); RED CELL DISTRIBUTION WIDTH 15.7 % (11.5-14.5)
[2023-05-24 07:56] LABS: ALBUMIN 2.7 gm/dL (3.4-5.0); BILIRUBIN TOTAL 0.75 mg/dL (0.3-1.2); CALCIUM 10.4 mg/dL (8.5-10.1); CREATININE SERUM 1.86 mg/dL (0.70-1.30); GFR 35.99; GLOBULINA 4.6 G/DL (2.4-3.5); MAGNESIUM 1.9 mg/dL (1.8-2.4); PHOSPHOROUS 3.8 mg/dL (2.5-4.9); POTASSIUM 4.56 mEq/L (3.5-5.1); PROSTATIC SPECIFIC ANTIGEN 0.443 NG/ML (0.010-4.00); TOTAL PROTEIN 7.3 gm/dL (6.4-8.2)
[2023-05-24 07:58] LABS: C-REACTIVE PROTEIN 1.58 MG/DL (0.00-0.29)
[2023-05-24] MEDS ORDERED: PANTOPRAZOLE SODIUM 40 MG/VIAL VIAL IV SCH (09:00)
[2023-05-24] MEDS ORDERED: FAMOTIDINE/PF 20 MG/2 ML VIAL IV SCH (09:00)
[2023-05-24] MEDS ORDERED: MEGESTROL ACETATE 400 MG/10 ML BLIST PACK PO SCH (16:03)
[2023-05-24] MEDS ORDERED: MULTIVIT INFUSN,ADULT 4,VIT K 10 ML VIAL IV SCH (16:03)
[2023-05-24] MEDS ORDERED: TAMSULOSIN HCL 0.4 MG CAP PO SCH (17:00)
[2023-05-25 06:18] LABS: HEMATOCRIT 35.1 % (39.0-48.0); HEMOGLOBIN 12.1 g/dL (13-16.00); MEAN CELL VOLUME 89.6 fL (80.0-100.00); MEAN CORPUSCULAR HEMOGLOBIN 30.8 pg (27.00-32.0); MEAN CORPUSCULAR HGB CONC 34.4 g/dl (32.0-36.0); PLATELET COUNT 213 K/uL (150-450); RED BLOOD COUNT 3.92 M/uL (4.00-6.00)
[2023-05-25 06:38] LABS: CALCIUM 10.2 mg/dL (8.5-10.1); CREATININE SERUM 1.47 mg/dL (0.70-1.30); GFR 47.22; POTASSIUM 4.2 mEq/L (3.5-5.1)
[2023-05-25] MEDS ORDERED: Pregabalin 50 MG CAPSULE PO SCH (09:00)
[2023-05-25] MEDS ORDERED: MEROPENEM 1,000 MG VIAL IV SCH (17:00)
[2023-05-26 06:35] LABS: HEMATOCRIT 33.5 % (39.0-48.0); HEMOGLOBIN 11.2 g/dL (13-16.00); MEAN CELL VOLUME 88.9 fL (80.0-100.00); MEAN CORPUSCULAR HEMOGLOBIN 29.8 pg (27.00-32.0); MEAN CORPUSCULAR HGB CONC 33.5 g/dl (32.0-36.0); PLATELET COUNT 203 K/uL (150-450); RED BLOOD COUNT 3.76 M/uL (4.00-6.00); RED CELL DISTRIBUTION WIDTH 15.8 % (11.5-14.5)
[2023-05-26 07:09] LABS: CALCIUM 9.9 mg/dL (8.5-10.1); CREATININE SERUM 1.37 mg/dL (0.70-1.30); GFR 51.22; POTASSIUM 4.1 mEq/L (3.5-5.1)
[2023-05-26] MEDS ORDERED: TAMSULOSIN HCL 0.4 MG CAP PO SCH (16:30)
[2023-05-26] MEDS ORDERED: TAZOBACTAM IV SCH (17:00)
[2023-05-26] MEDS ORDERED: CEFTOLOZANE IV SCH (17:00)
[2023-05-28 07:34] LABS: URINE APPEARANCE Turbid; URINE BILIRRUBIN Negative (NEGATIVE); URINE BLOOD Moderate; URINE COLOR Yellow; URINE LEUKOCYTE Large; URINE NITRATE Negative; URINE PROTEIN 30 (NEGATIVE); URINE UROBILINOGEN 0.2 E.U./dl
[2023-05-28 07:35] LABS: URINE BACTERIA 1044.5 uL (0.0-1933); URINE RBC 75.5 uL (0.0-20.8)
[2023-05-28 08:23] LABS: URINE GLUCOSE 100 MG/DL (NEGATIVE); URINE WBC > 5548.3 uL (0.0-23.2)
[2023-05-30 07:18] LABS: HEMOGLOBIN 10.8 g/dL (13-16.00); MEAN CELL VOLUME 89.4 fL (80.0-100.00); MEAN CORPUSCULAR HEMOGLOBIN 30.1 pg (27.00-32.0); MEAN CORPUSCULAR HGB CONC 33.6 g/dl (32.0-36.0); PLATELET COUNT 192 K/uL (150-450); RED BLOOD COUNT 3.58 M/uL (4.00-6.00); RED CELL DISTRIBUTION WIDTH 15.8 % (11.5-14.5)
[2023-05-30 07:23] LABS: ALBUMIN 1.7 gm/dL (3.4-5.0); BILIRUBIN TOTAL 0.6 mg/dL (0.3-1.2); CREATININE SERUM 1.07 mg/dL (0.70-1.30); GFR 68.13; GLOBULINA 4.4 G/DL (2.4-3.5); POTASSIUM 3.84 mEq/L (3.5-5.1); TOTAL PROTEIN 6.1 gm/dL (6.4-8.2)
[2023-05-30] MEDS ORDERED: INSULIN LISPRO 1,000 UNIT/10 ML UNITS SUBCUTANEO PRN (11:45)
[2023-05-30] MEDS ORDERED: DEXTROSE 50 % IN WATER 0.5 G/ML DISP.SYRIN IV PRN (11:45)
[2023-06-03] MEDS ORDERED: FLUCONAZOLE 200 MG TABLET PO ONE (11:06)
== END 2023-06-03 15:10 | disposition home or self-care (01) | DRG 674 ==
LOC: ER 01:15 → SURH 09:02 → SEC-K 09:02 → SURH 09:49 → O/R 05-25 10:39 → SURH 05-25 10:40
PROVIDERS: Internal Medicine; Internal Medicine Infectious Disease; ADMIT Surgery; ATTEND Surgery
PROC: BW21ZZZ Computerized Tomography (CT Scan) of Abdomen and Pelvis (ICD-10-PCS; 2023-05-23)
PROC: 0JB80ZZ Excision of Abdomen Subcutaneous Tissue and Fascia, Open Approach (ICD-10-PCS; principal; 2023-05-25)
DX: N39.0 Urinary tract infection, site not specified (principal); N17.9 Acute kidney failure, unspecified; L98.493 Non-pressure chronic ulcer of skin of other sites with necrosis of muscle; I12.9 Hypertensive chronic kidney disease with stage 1 through stage 4 chronic kidney disease, or unspecified chronic kidney disease; E86.0 Dehydration; E11.22 Type 2 diabetes mellitus with diabetic chronic kidney disease; N18.30 Chronic kidney disease, stage 3 unspecified; Z79.4 Long term (current) use of insulin; G62.9 Polyneuropathy, unspecified; B96.1 Klebsiella pneumoniae [K. pneumoniae] as the cause of diseases classified elsewhere; B96.5 Pseudomonas (aeruginosa) (mallei) (pseudomallei) as the cause of diseases classified elsewhere